=== PATIENT | female | born 1935 | race Caucasian/White ===

== ENCOUNTER 2021-06-02 08:50 | Inpatient (IN) | payer OTHER ==
[~2021-06-02] VITALS: Ht 149.9 cm; Wt 65.3 kg
[2021-06-02 08:50] VITALS: BP 98/32
--- NOTE | 2021-06-02 09:35 | EKG ---
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
[2021-06-02 09:39] LABS: HEMOGLOBIN 8.6 gm/dL (12.0-15.0); MCH 32.5 pg (26.0-34.0); MCHC 32.9 g/dL (28.0-37.0); MCV 98.8 fL (80.0-100.0); RBC 2.63 mil/uL (4.20-5.00); RDW 17.4 % (10.5-14.5); WBC 13.6 thou/uL (4.0-11.0)
[2021-06-02 09:48] LABS: AMP/METHAMP Negative (Negative); BARBITURATES Negative (Negative); BENZODIAZEPINES Negative (Negative); COCAINE Negative (Negative); METHADONE Negative (Negative); OPIATES Negative (Negative); PCP Negative (Negative); URINE BILIRUBIN NEGATIVE (Negative); URINE BLOOD NEGATIVE (Negative); URINE CLARITY CLEAR; URINE COLOR YELLOW; URINE GLUCOSE-RANDOM* NEGATIVE (Negative); URINE KETONES NEGATIVE (Negative); URINE LEUKOCYTES-REFLEX NEGATIVE (Negative); URINE NITRITE-REFLEX NEGATIVE (Negative); URINE PROTEIN (DIPSTICK) NEGATIVE (Negative); URINE UROBILINOGEN 0.2 E.U./dl (0.2-1.0)
[2021-06-02] MEDS ORDERED: TRAMADOL 50 MG50 MG PO (09:52)
[2021-06-02] MEDS ORDERED: WARFARIN SODIUM1 MG PO (09:52)
[2021-06-02] MEDS ORDERED: VITAMIN B-650 M1 PO (09:52)
[2021-06-02] MEDS ORDERED: CALTRATE-600 W1 EACH PO (09:53)
[2021-06-02] MEDS ORDERED: ASA81BEC PO (09:53)
[2021-06-02] MEDS ORDERED: AMBIEN CR12.5 MG PO (09:53)
[2021-06-02] MEDS ORDERED: VITAMIN B-121000 MC2 PO (09:54)
[2021-06-02] MEDS ORDERED: HYDROCHLOROTH12.5 M1 PO (09:55)
[2021-06-02] MEDS ORDERED: NEURONTIN 300M300 M2 PO (09:55)
[2021-06-02] MEDS ORDERED: METOPROLOL SUC100 MG PO (09:55)
[2021-06-02 09:58] LABS: MAGNESIUM 1.5 mg/dL (1.8-2.4); PHOSPHORUS 2.5 mg/dL (2.6-4.7)
[2021-06-02 10:02] LABS: SALICYLATE < 2.8 mg/dL (2.8-20.0)
[2021-06-02 10:10] LABS: APTT 31.4 Seconds (24.5-32.8); INR 1.3
[2021-06-02 13:54] LABS: ALBUMIN 2.1 g/dL (3.4-5.0); CALCIUM 8.3 mg/dL (8.5-10.1); CREATININE 1.2 mg/dL (0.6-1.0); POTASSIUM 3.6 mmol/L (3.5-5.1); TOTAL BILIRUBIN 0.8 mg/dL (0.2-1.0); TOTAL PROTEIN 6.9 g/dL (6.4-8.2)
[2021-06-02 14:29] LABS: FOLIC ACID 11.1 ng/mL (8.6-58.9)
[2021-06-02 15:19] VITALS: BP 95/59
[2021-06-02 15:24] LABS: % SATURATION 19 % (20-39); IRON 27 ug/dL (50-170); TIBC 139 ug/dL (250-450)
--- NOTE | 2021-06-02 15:52 | NUR ---
1ST ATTEMPT TO CALL REPORT
--- NOTE | 2021-06-02 16:11 | NUR ---
ATTEMPTED TO CALL REPORT
[2021-06-02] MEDS ORDERED: PROTONIX40 M2 PO (17:43)
--- NOTE | 2021-06-02 19:24 | NUR ---
Received pt from the ED, VS stable. Admitting orders carried out. POC followed with no signs or verbalizations of distress noted. Daughter is at the bed side, works as a CM in [address] [place] [address]. Literature regarding radiation pellets that were place in her at [employer] on the chart. Endorsed to the night nurse.
[2021-06-02 19:25] VITALS: BP 101/62
--- NOTE | 2021-06-03 02:09 | NUR ---
Assumed pt care at 1900. Admitted with AMS, A/OX3 forgetful but pleasant. VSS.Denies pain on assessment. Reports having fallen recently d/t weakness,but denies using and assistive devices. Fall safety education reinforced,verbalizes understanding and agrees to call for help. Skin C/D/I. Continent of B&B. SR on telemetry. Resting quietly at this time w/o any distress noted,will continue to monitor pt.
[2021-06-03 04:28] VITALS: BP 98/49
[2021-06-03 05:40] LABS: HEMATOCRIT 21.5 % (37.0-47.0); HEMOGLOBIN 7.3 gm/dL (12.0-15.0); RBC 2.18 mil/uL (4.20-5.00); WBC 9.1 thou/uL (4.0-11.0)
[2021-06-03 05:41] LABS: ABSOLUTE NEUTROPHILS 8.4 thou/uL (1.4-8.2); BASOPHILS 0.1 % (0.0-2.0); EOSINOPHILS 0.1 % (0.0-3.0); LYMPHOCYTES 1.1 % (24.0-44.0); MCH 33.5 pg (26.0-34.0); MCV 98.5 fL (80.0-100.0); MONOCYTES 6.4 % (1.0-8.0); PLATELET COUNT 65 thou/uL (150-400); POLYS 92.3 % (36.0-66.0); RDW 17.6 % (10.5-14.5)
[2021-06-03 06:03] LABS: CALCIUM 7.4 mg/dL (8.5-10.1); CREATININE 0.9 mg/dL (0.6-1.0); MAGNESIUM 2.1 mg/dL (1.8-2.4); POTASSIUM 3.4 mmol/L (3.5-5.1)
--- NOTE | 2021-06-03 15:07 | NUR ---
PT ADMITTED RELATED TO AMS AND CONFUSION. CM MET WITH PT AT BEDSIDE THIS DAY. PT APPEARED TO BE A&O X4. CM ROLE INTRODUCED. PT INDICATED SHE LIVES IN A HOUSE WITH HER SPOUSE WITH 3 STEPS TO ENTER AND NO STEPS SHE NEEDS TO USE INSIDE. PT INDICATED SHE HAS A CANE AND A FWW FOR USE AT HOME. PT INDICATED NO PREVIOUS HH OR SNF PLACEMENT. SHE INDICATED THAT HER SPOUSE IS SKILLED AT [facility] CURRENTLY. PT INDICATED SHE HOPED TO BE ABLE TO RETURN HOME ONCE MEDICALLY STABLE BUT WOULD BE RECEPTIVE TO SHORT TERM POST ACUTE CARE STAY IF NEEDED. CM TO [facility] FOR [facility] FOR POSSIBLE ADMISSION. [facility] IS ALSO FOLLOWING. CM FOLLOWING REGARDING DC PLANNING.
--- NOTE | 2021-06-03 17:18 | NUR ---
Assumed pt care this am, vs stable. Uses the commode at the bedside, diet and medications are well tolerated. Tried to work with PT and OT, did not want to do much stated she was too tired since she tried to have a bm. POC followed, family visited in the pm.
[2021-06-03 19:21] VITALS: BP 107/59
--- NOTE | 2021-06-04 05:45 | NUR ---
Assumed pt care at 1900. A/OX4 with some forgetfulness noted but able to make needs known. VSS.C/o right shoulder pain medicated with Tylenol with relief reported. Pt also requested for sleep aid stated she has been taking Ambien for years for insomnia w/o any problems. Vandana MEAT STOCK CLERK notified and order obtained for ambien,administered to pt. Pt woke up later disoriented on her whereabouts,reoriented w/o problems and able to voice her needs again. Having 4 loose stools at night. SR on telemetry.Fall precautions in place,will continue to monitor pt.
[2021-06-04 07:58] VITALS: BP 114/68
--- NOTE | 2021-06-04 08:33 | HC ---
[facility] [place] [address] CONSULTATION Name: JOY US Room #: 460-P ADM IN M.R.#: [id number] Admission: 06/02/21 Attend Phys: Adam Schumacher MD Discharge: Date of : 37 Report #: [id number] THIS REPORT FOR: cc: Ted Padilla MD, Stephen R. MD McKittrick, Richard James MD ~ cc: Lashon Simpson APRN, Dr. 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 HISTORY OF PRESENT ILLNESS: The patient is an 86-year-old female who was diagnosed with a high grade uterine cancer in 07/2020. She is under the care of Wolfgang Aparicio MD field artillery senior sergeant onc at [facility]. She had 6 cycles of carbo taxol beginning 10/14/2020 and last given about . She completed pelvic xrt 04/04/2021. She had biopsy proven liver recurrence 04/30/2021. When she recovers they are contmplating treatment with keytruda and lenvima. She underwent what sounds like Y90 radiation beads and was discharged last Wednesday from [facility] on 05/30/2021. Over the weekend, she had weakness and decline, was brought to the hospital for further evaluation. Here, she is thought to have a chest x-ray that has pneumonia, was begun on antibiotics and today is actually looking and feeling better by the nurses' description. The patient is still somewhat fuzzy on details related to her illness. At this time, the patient denies fevers, chills, nausea, vomiting, arm or leg swelling or bleeding. She did, when she came in, have a history of weakness, poor appetite and mental status changes. Past history appears to be notable for what sounds like a very distant history of breast cancer some 20 years ago, treated by Dr. Marium Ritchie at [facility]. More recent history of uterine cancer. I did reach her nurse practitioner name Sanjana at [phone]. CURRENT MEDICATIONS: Include vancomycin 500 mg q.12 hours, pantoprazole 40 mg daily p.o., Zosyn 3.375 IV q. 8 hours, Tylenol p.r.n., MiraLax p.r.n., nitroglycerin p.r.n., Zofran p.r.n. PAST MEDICAL HISTORY: Also notable for endometrial cancer, the breast cancer, sounds like hypertension, neuropathy, may be B12 deficiency. SOCIAL HISTORY: She is retired. She has a at home and a dog, that is a Yorkie, named Baby that she is very fond of. FAMILY HISTORY: Noncontributory. SOCIAL HISTORY: Not currently working. No significant alcohol or tobacco. [address] [address] CONSULTATION Name: JOY US Room #: 460-P [facility] IN .R.#: [id number] Admission: 06/02/21 Attend Phys: Adam Schumacher MD Discharge: Date of : 37 Report #: [id number] PHYSICAL EXAMINATION: GENERAL: The patient appears her stated age. She is an elderly white female in a hospital bed, questionable historian, but very pleasant. VITAL SIGNS: Weight is 130 pounds or 58.97 kilograms. Height 4 feet 11 inches or 149.9 cm. Blood pressure is currently 90/49, O2 sat 95%, respirations 18, pulse 73, temperature 98. HEENT: Face is symmetrical. NEUROLOGIC: She is pleasant. Her memory is not quite significant for specific details. Oropharynx is clear. She may have some ulcer and irritation on her lower lip on the right. NECK: No enlarged lymph nodes in the supraclavicular, cervical, axillary or inguinal region. ABDOMEN: Nonobese. No masses, not really tender. EXTREMITIES: Without clubbing or cyanosis. There may be a trace edema. LABORATORY DATA: Here shows a creatinine of 0.9. Liver functions with an AST of 87, ALT of 45, albumin of 2.1. Ammonia less than 10; iron 27, low; TIBC 139, low; percent iron saturation 19%; INR 1.3 with a protime of 14.0, slightly elevated; APTT 31.4. Drug screen was negative. White count 9.1, hemoglobin 7.3, down from 8.6 after hydration, not sure what her baseline is. MCV 98.5, platelets were 78, today are 65. Again, do not know her baseline. Differential nonacute. UA, no specific abnormalities. Imaging included CT head with age-related changes, but no acute changes. There is some age-related atrophy. Chest x-ray raised the question of alveolar infiltrate, worse on the right, nonspecific, suggestive of atypical pneumonia or pneumonitis. The patient is COVID negative. ASSESSMENT AND PLAN: 1. history of recurrent endometrial cancer. No outside records available. Did talk with DAVID at [facility] at [facility]. With improvement in mentation, I doubt that is causing her mental difficulties. No specific intervention needed at this time. 2. Distant history of breast cancer, nonrecurrent. 3. Mental status changes, possible early sepsis related to possible pneumonia, seems improved with antibiotics. 4. Dehydration on admission, improved with IV fluids. 5. Anemia. Transfuse to keep hemoglobin above 7. Watch for bleeding. 6. Thrombocytopenia. Continue monitoring, transfuse to keep above 20, may be near baseline. 7. Prophylaxis. Continue acid blockers. We will follow with you. <ELECTRONICALLY SIGNED> By: Enrike Hassan MD 06/04/21 0833 [id number] Enrike Hassan MD /nt
--- NOTE | 2021-06-04 15:53 | NUR ---
CARE TEAM CONTINUEING TO MONITOR. LABS TO BE DONE TO CHECK HGB. [facility] FOLLOWING. CM FOLLOWING REGARDING DC PLANNING.
--- NOTE | 2021-06-04 17:06 | NUR ---
Assumed pt care this am, awaiting stool sample to r/o c-diff though pt has only had 1 bm. Poor intake of food is noted, initially refused to work with Pbut was able to with encouragement. Family at the bedside, caled lab several time for missed draw at 6:30 am... labs were drawn at 1700. POC followed, pain is managed with medications.
[2021-06-04 17:30] LABS: HEMATOCRIT 21.7 % (37.0-47.0); HEMOGLOBIN 7.1 gm/dL (12.0-15.0); MCH 32.1 pg (26.0-34.0); MCHC 32.4 g/dL (28.0-37.0); RBC 2.2 mil/uL (4.20-5.00); RDW 17.9 % (10.5-14.5); WBC 9.2 thou/uL (4.0-11.0)
[2021-06-04 17:38] LABS: CALCIUM 7.4 mg/dL (8.5-10.1); CREATININE 0.8 mg/dL (0.6-1.0)
[2021-06-04 19:21] VITALS: BP 125/75
--- NOTE | 2021-06-05 04:15 | NUR ---
Assumed pt care at 1900. A/OX3,forgetful complained of being tired and just wanted to sleep at the beginning of shift.Denies pain on assessment,VSS. Watermelon given from her statch,declined need to eat anything else. Potassium 3.0 replaced at HS,will monitor labs this AM. Continent of B&B,no further BMs this shift;pending collection of cdiff/OBS sample. Up with AX1,GB/RW to BSC. Remains on cdiff r/o isolation.Fall precautions in place.
[2021-06-05 09:03] VITALS: BP 142/87
[2021-06-05 10:48] LABS: CALCIUM 7.6 mg/dL (8.5-10.1); POTASSIUM 3.5 mmol/L (3.5-5.1)
[2021-06-05 11:22] VITALS: BP 112/64
--- NOTE | 2021-06-05 15:53 | NUR ---
PT GETTING IV IRON AND PRBC THIS DAY. 5N CONSULTED. CM FOLLOWING REGARDING DC PLANNING. HOPEFUL FOR DC TO 5N NEXT WEEK.
[2021-06-05 17:16] VITALS: BP 127/80
[2021-06-05 19:20] VITALS: BP 115/58
[2021-06-05 20:25] VITALS: BP 124/80; BP 151/94
--- NOTE | 2021-06-06 04:27 | NUR ---
Pt. had blood transfusion during the beginning of the shift and tolerated it without difficulty. Her pulse rate has gradually went up into the upper 120's and has been sustaining there. Called Vandana GOLDSMITH and she was notifed of payal- vated pulse rate. New order for NS bolus. Pt. offers no complaints. No shortness of air. Bed alarm is on.
[2021-06-06 07:25] VITALS: BP 117/72
[2021-06-06 09:40] LABS: ABSOLUTE NEUTROPHILS 9.2 thou/uL (1.4-8.2); BASOPHILS 0.9 % (0.0-2.0); EOSINOPHILS 0.2 % (0.0-3.0); HEMOGLOBIN 8.9 gm/dL (12.0-15.0); LYMPHOCYTES 3.2 % (24.0-44.0); MCH 32.5 pg (26.0-34.0); MCHC 34.1 g/dL (28.0-37.0); MCV 95.2 fL (80.0-100.0); MONOCYTES 7.1 % (1.0-8.0); PLATELET COUNT 84 thou/uL (150-400); POLYS 88.6 % (36.0-66.0); RBC 2.73 mil/uL (4.20-5.00); RDW 20.4 % (10.5-14.5); WBC 10.4 thou/uL (4.0-11.0)
[2021-06-06 11:55] LABS: ANISOCYTOSIS 2+
[2021-06-06 14:04] VITALS: BP 127/73
--- NOTE | 2021-06-06 16:10 | NUR ---
CARE TEAM INDICATED THAT PT IS TO HAVE CT OF CHEST, ABD, AND PELVIS THIS DAY. SOME MED ADJUSTMENTS MADE. ANTICIPATE 5N ASSESSING AND POSSIBLE ADMISSION TO 5N BEGINING OF NEXT WEEK. CM FOLLOWING REGARDING DC PLANNING.
--- NOTE | 2021-06-06 16:34 | NUR ---
Assumed pt care at 7am.Assessment completed.vss but elevated temp noted. Am meds given with tylenol po and temp rechecked in one hour later was 97.7 Dr Bain here,order noted.Family here to visit,updates given. No verbal c/o from pt at present. Will continue to monitor.
[2021-06-06 19:26] VITALS: BP 132/85
--- NOTE | 2021-06-07 02:47 | NUR ---
PT CARE ASSUMED WITH PT IN BED .PT IS A/O X4.PT IS UP WITH X1 ASSIST TO THE BSC.PT ABLE TO CALL OUT APPROPRIETELY FOR HELP.IV ACCESS ON LT UA WIT ABX.PT ON ROOM AIR.WILL CONTINUE TO MONITOR PER POC
[2021-06-07 06:08] LABS: HEMATOCRIT 27.1 % (37.0-47.0); HEMOGLOBIN 9.1 gm/dL (12.0-15.0); MCH 31.9 pg (26.0-34.0); MCHC 33.4 g/dL (28.0-37.0); MCV 95.5 fL (80.0-100.0); RBC 2.84 mil/uL (4.20-5.00); RDW 20.1 % (10.5-14.5); WBC 8.7 thou/uL (4.0-11.0)
[2021-06-07 06:17] LABS: CALCIUM 7.9 mg/dL (8.5-10.1); CREATININE 0.9 mg/dL (0.6-1.0); MAGNESIUM 1.4 mg/dL (1.8-2.4); POTASSIUM 3.1 mmol/L (3.5-5.1)
[2021-06-07 08:30] VITALS: BP 120/89
[2021-06-07 12:23] VITALS: BP 105/81
--- NOTE | 2021-06-07 15:09 | NUR ---
Assumed pt care at 7am.Pt in and out of bed with assist x1. Assessment completed.vss.Pt up in chair for all meals.Fair appetite. Family here to visit updates given.Pt potassium and mag was replaced today.Dr Bain and Oncologist was here,order noted.Pt in bed at present sleeping without distress s/s.Will continue to monitor.
[2021-06-07 16:01] VITALS: BP 138/83
[2021-06-07 19:42] VITALS: BP 104/85
--- NOTE | 2021-06-08 03:12 | NUR ---
patient aox4 makes needs known. patient trazadone was on hold and had different times to give it 1999 and 2099,called order processing clerk to clarify, new order to hold trazadone. patient notified. pain controlled this shift. patient encouraged fluids. patient uses bedside commode. patient in bed asleep at this time breathing regular and unlaboured.
[2021-06-08 05:33] LABS: HEMATOCRIT 25.3 % (37.0-47.0); HEMOGLOBIN 8.5 gm/dL (12.0-15.0); MCH 32.1 pg (26.0-34.0); MCHC 33.6 g/dL (28.0-37.0); MCV 95.7 fL (80.0-100.0); RBC 2.65 mil/uL (4.20-5.00); RDW 19.7 % (10.5-14.5)
[2021-06-08 06:02] VITALS: BP 149/99
[2021-06-08 06:04] LABS: CALCIUM 7.8 mg/dL (8.5-10.1); CREATININE 0.9 mg/dL (0.6-1.0); MAGNESIUM 1.6 mg/dL (1.8-2.4)
[2021-06-08 08:12] VITALS: BP 148/96
--- NOTE | 2021-06-08 12:14 | NUR ---
ASSUMED PT CARE THIS AM. PT A&OX4, ABLE TO MAKE NEEDS KNOWN. PATIENT HAS BEEN CONTINENT THIS SHIFT, UP TO BATHROOM WITH ASSIST. PATIENT DENIES PAIN. IV PATENT, SALINE LOCKED. PATIENT IS ON ROOM AIR. MEDICATION TAKEN WITHOUT ISSUE. FALL PRECAUTIONS ARE IN PLACE, CALL LIGHT WITHIN REACH.
[2021-06-08 16:46] VITALS: BP 132/80
[2021-06-08 19:20] VITALS: BP 127/88
--- NOTE | 2021-06-09 01:25 | NUR ---
PATIENT AOX4 MAKES NEEDS KNOWN.PATIENT HAD A SLEEPING MEDS.PATIENT IS CONTIENT THIS SHIFT. PATIENT DENIED PAIN OR DISCOMFORT.FALL PRECAUTION IN PLACE. PATIENT IN BED ASLEEP AT THIS TIME BREATHING REGULAR AND UNLABOURED.
[2021-06-09 03:00] LABS: HEMATOCRIT 24.6 % (37.0-47.0); HEMOGLOBIN 8.2 gm/dL (12.0-15.0); MCH 32.1 pg (26.0-34.0); MCHC 33.5 g/dL (28.0-37.0); MCV 95.6 fL (80.0-100.0); RBC 2.57 mil/uL (4.20-5.00); RDW 19.2 % (10.5-14.5); WBC 8.5 thou/uL (4.0-11.0)
[2021-06-09 03:15] LABS: CALCIUM 7.6 mg/dL (8.5-10.1); CREATININE 0.9 mg/dL (0.6-1.0); MAGNESIUM 1.4 mg/dL (1.8-2.4); POTASSIUM 3.9 mmol/L (3.5-5.1)
[2021-06-09 07:42] VITALS: BP 114/80
[2021-06-09 12:13] VITALS: BP 119/83
--- NOTE | 2021-06-09 12:13 | NUR ---
ASSUMED PT CARE THIS AM. PT A&OX4, ABLE TO MAKE NEEDS KNOWN. PATIENT REPORTINF PAIN IN HER BACK, RESPONDS WELL TO PAIN MEDICATION GIVEN PER EMAR. IV PATENT, SALINE LOCKED. PATIENT TOELRATED MEDICATIONS WELL. PATIENT IS ON ROOM AIR. PATIENT REMAINS CONTINENT, UP TO BATHROOM WITH ASSIST. FALL PRECAUTIONS ARE IN PLACE, CALL LIGHT WITHIN REACH.
[2021-06-09 18:01] VITALS: BP 116/61
[2021-06-09 19:40] VITALS: BP 127/78
--- NOTE | 2021-06-10 01:35 | NUR ---
patient aox4 makes needs known. no confusion or ams noted this shift. patient ambulates slowly with a walker to the bathroom. pain controlled this shift.patient in bed asleep at this time breathing regular and unlaboured.
[2021-06-10 03:14] LABS: HEMATOCRIT 23.8 % (37.0-47.0); HEMOGLOBIN 8.1 gm/dL (12.0-15.0); MCH 32.4 pg (26.0-34.0); MCHC 33.9 g/dL (28.0-37.0); MCV 95.5 fL (80.0-100.0); RBC 2.49 mil/uL (4.20-5.00); RDW 19.1 % (10.5-14.5)
[2021-06-10 04:01] VITALS: BP 122/76
[2021-06-10 07:39] VITALS: BP 122/80
--- NOTE | 2021-06-10 14:35 | NUR ---
Assumed pt care at 7am.Pt in and out of bed for activities.Assessment completed.vss.st/sr with irregular rhythm on patient monitor.Pt tolerated med and diet.Pt dtr here,updates given.Ot and Pt exercise with pt. Dr Bain and Kalina here,order noted.Ultram given for generalized pain with relief once today.Pt min bed at present resting and watching tv.Will continue to monitor.
[2021-06-10 16:00] VITALS: BP 126/90
[2021-06-10 19:50] VITALS: BP 106/62
--- NOTE | 2021-06-11 00:29 | NUR ---
ASSUMED CARE AT 1900 OF 06/10. PATIENT IS A&OX4 AT ASSESSMENT. DENIES PAIN OR SOB. ORAL ABX ADMINISTERED AT HS. PATIENT TOLERATED ORAL MEDS WHOLE WITH THIN LIQUIDS. LIDOCAINE PATCH REMOVED FROM LOWER BACK. MINIMAL ASSIST OF 1 USING GB AND WALKER TO AMBULATE TO BATHROOM. LEFT UPPER ARM IV SITE IS SALINE LOCKED, DRESSING IS CDI. TRAZADONE ADMINISTERED BEFORE 21OO WAS EFFECTIVE AND DID NOT REQUIRE SECOND DOSE. SLEEPING, UNLABOURED BREATHING NOTED. FALL PRECAUTIONS IN PLACE, CALL LIGHT WITHIN REACH, WILL CONTINUE TO MONITOR.
[2021-06-11 04:27] VITALS: BP 108/63
[2021-06-11 10:40] LABS: BASOPHILS 0.3 % (0.0-2.0); EOSINOPHILS 0.1 % (0.0-3.0); HEMATOCRIT 26.2 % (37.0-47.0); HEMOGLOBIN 8.6 gm/dL (12.0-15.0); LYMPHOCYTES 2.1 % (24.0-44.0); MCH 31.4 pg (26.0-34.0); MCHC 32.8 g/dL (28.0-37.0); MCV 95.6 fL (80.0-100.0); MONOCYTES 5.9 % (1.0-8.0); POLYS 91.6 % (36.0-66.0); RBC 2.74 mil/uL (4.20-5.00); RDW 18.9 % (10.5-14.5); WBC 8.7 thou/uL (4.0-11.0)
[2021-06-11 11:30] LABS: PLATELET COUNT 41 thou/uL (150-400)
[2021-06-11 12:18] VITALS: BP 108/63
[2021-06-11] MEDS ORDERED: AMOX TR-K CLV1 EAC4 PO (13:49)
[2021-06-11] MEDS ORDERED: TRAZODONE HCL50 MG PO (13:50)
[2021-06-11] MEDS ORDERED: REMERON 30 MG T30 M1 PO (13:50)
--- NOTE | 2021-06-11 14:20 | NUR ---
CARE TEAM INDICATED THAT PT IS MEDICALLY STABLE TO DC HOME THIS DAY. PT IS TO DC HOME WITH [facility]. PT WAS ISSUED A FWW FOR HOME USE BY PROVIDER PLUS. PT'S FAMILY IS TO PROVIDE TRANSPORT HOME THIS DAY BETWEEN [phone]. CM FAXED ORDERS TO [facility]. NO OTHER CM INTERVENTION INDICATED. CASE CLOSED.
[2021-06-11 15:06] VITALS: BP 108/63
--- NOTE | 2021-06-11 15:23 | NUR ---
Assumed pt care at 7am.Assessment completed.vss.Pt was active and excited about going home today.Assisted to bathroom and am care given.Pt tolerated meds and diet.Dr Diaz rounded on pt,dc order noted. Dc summary compile and reviewed with pt and dtr. Midline dc'd . Rx sent to pt pharmacy.At 1530,pt dc home per wc accompanied by alejandrina and farrah.
== END 2021-06-11 15:30 | disposition home health service (06) | DRG 871 ==
LOC: ER 08:50 → EROBS 12:25 → 4W 12:25
PROVIDERS: Emergency Medicine; Hospitalist; Internal Medicine; Internal Medicine Hematology & Oncology; Nurse Practitioner; Nurse Practitioner Family; ADMIT Hospitalist; ATTEND Hospitalist
PROC: 30233N1 Transfusion of Nonautologous Red Blood Cells into Peripheral Vein, Percutaneous Approach (ICD-10-PCS; principal; 2021-06-05)
DX: A41.9 Sepsis, unspecified organism (principal); J18.9 Pneumonia, unspecified organism; E43 Unspecified severe protein-calorie malnutrition; C78.7 Secondary malignant neoplasm of liver and intrahepatic bile duct; D61.818 Other pancytopenia; D84.9 Immunodeficiency, unspecified; R18.8 Other ascites; J98.11 Atelectasis; K52.9 Noninfective gastroenteritis and colitis, unspecified; G62.9 Polyneuropathy, unspecified; J43.2 Centrilobular emphysema; E86.0 Dehydration; E83.42 Hypomagnesemia; E53.8 Deficiency of other specified B group vitamins; R53.81 Other malaise; I11.9 Hypertensive heart disease without heart failure; G89.29 Other chronic pain; M54.5 Low back pain; G47.00 Insomnia, unspecified; Z96.651 Presence of right artificial knee joint; Z20.822 Contact with and (suspected) exposure to COVID-19; Z68.29 Body mass index [BMI] 29.0-29.9, adult; Z85.42 Personal history of malignant neoplasm of other parts of uterus; Z90.710 Acquired absence of both cervix and uterus; Z92.3 Personal history of irradiation; Z92.21 Personal history of antineoplastic chemotherapy; Z79.899 Other long term (current) drug therapy; Z79.82 Long term (current) use of aspirin; Z79.01 Long term (current) use of anticoagulants; Z85.3 Personal history of malignant neoplasm of breast; I25.2 Old myocardial infarction
CPT/HCPCS: 10045